=== PATIENT | female | born 1990 | race Caucasian/White ===

== ENCOUNTER 2017-05-11 13:15 | Emergency (ER) | payer SELFPAY ==
[2017-05-11] MEDS ORDERED: NS 0.9% 1000 ML* 1,000 ML IV ONE (14:06)
[2017-05-11 14:27] LABS: Hematocrit 39 % (35-47); Hemoglobin 13.5 g/dl (12.0-16.0); Mean Corpuscular HGB Conc 35 g/dl (31-36); Mean Corpuscular Hemoglobin 31 pg (27-31); Mean Corpuscular Volume 89 fL (80-97); Mean Platelet Volume 9 um3 (7.4-10.4); Red Blood Count 4.33 10^6/ul (4.0-5.4); Red Cell Distribution Width 12 % (10.5-15); White Blood Count 11.3 10^3/ul (3.5-10.8)
[2017-05-11 14:34] LABS: Chloride 105 mmol/L (101-111); Potassium 4.4 mmol/L (3.5-5.0); Sodium 136 mmol/L (133-145)
[2017-05-11 14:37] LABS: Urine Bilirubin Negative (Negative); Urine Glucose 1+(50 mg/dL) (Negative); Urine Nitrite Negative (Negative)
[2017-05-11 14:53] LABS: ALT 17 U/L (7-52); AST 17 U/L (13-39); Albumin 4.2 g/dL (3.2-5.2); Alkaline Phosphatase 32 U/L (34-104); Anion Gap 6 mmol/L (2-11); Blood Urea Nitrogen 15 mg/dL (6-24); CO2 Carbon Dioxide 25 mmol/L (22-32); Calcium 9.5 mg/dL (8.6-10.3); EGFR African American 119.2 (>60); EGFR Non-African American 92.7 (>60); Globulin 2.9 g/dL (2-4); Glucose 94 mg/dL (70-100); Lipase 23 U/L (11.0-82.0); Total Protein 7.1 g/dL (6.4-8.9)
[2017-05-11] MEDS ORDERED: Iohexol 300* (CONTRAST) 10 ML SDV IV ONE (15:02)
[2017-05-11] MEDS ORDERED: HYDROcodone/ACETAMIN 5-325 MG* 1 TAB PO ONE ×2 (15:06→16:21)
[2017-05-11 15:40] VITALS: BP 114/68
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
== END 2017-05-11 16:31 | disposition home or self-care (01) ==
LOC: ED 13:15
DX: S20.219A Contusion of unspecified front wall of thorax, initial encounter (principal); R10.9 Unspecified abdominal pain; R07.9 Chest pain, unspecified; S39.91XA Unspecified injury of abdomen, initial encounter; V43.62XA Car passenger injured in collision with other type car in traffic accident, initial encounter; Y93.89 Activity, other specified; Y92.89 Other specified places as the place of occurrence of the external cause
CPT/HCPCS: 36415; 71260; 74177; 80053; 81003; 83690; 84702; 85025; 85610; 85730; 99283; Q9967